=== PATIENT | male | born 1990 | race Caucasian/White ===

== ENCOUNTER 2018-12-10 21:44 | Emergency (ER) | payer MEDICAID ==
[2018-12-10] MEDS ORDERED: 0.9 % SODIUM CHLORIDE 1,000 ML BAG IV ONE (21:56)
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
[2018-12-10 22:16] LABS: BASO % 0.6 % (0-6); EOS % 0.5 % (0-6); GRAN % 70.9 % (47-80); HEMATOCRIT 43.5 % (42.0-52.0); HEMOGLOBIN 15.1 gm/dl (14.0-18.0); LYMPH % 19.2 % (16-45); MEAN CELL VOLUME 87.3 fl (81-97); MEAN CORPUSCULAR HEMOGLOBIN 30.3 pg (27-33); MEAN CORPUSCULAR HGB CONC 34.7 g/dl (32-36); MEAN PLATELET VOLUME 10.5 fl (7.4-10.4); MONO % 8.8 % (0-9); PLATELET COUNT 207 K/uL (130-400); RED BLOOD COUNT 4.98 M/uL (4.40-5.70); RED CELL DISTRIBUTION WIDTH 14.1 % (11.5-14.5); WHITE BLOOD COUNT W/O DIFF 10.3 K/uL (4.2-12.2)
[2018-12-10 22:25] LABS: BLOOD UREA NITROGEN 12 mg/dL (6-20); CREATININE 0.9 mg/dL (0.7-1.2); EST GLOMERULAR FILTRATION RATE > 60 mL/min; TOTAL PROTEIN 7.6 g/dL (6.6-8.7)
[2018-12-10 22:27] LABS: GLUCOSE,RANDOM 205 mg/dL (74-109)
[2018-12-10 22:30] LABS: ALB/GLOB RATIO 1.8 (1.1-1.8); ALBUMIN 4.9 g/dL (4.0-5.0); ALKALINE PHOSPHATASE 70 U/L (55-149); ALT/SGPT 9 U/L (<41); AST/SGOT 10 U/L (10.0-50.0)
[2018-12-10] MEDS ORDERED: POTASSIUM CHLORIDE 20 MEQ TABLET PO ONE (22:30)
--- NOTE | 2018-12-14 08:32 | RADIOLOGY REPORT ---
EXAM: CHEST, TWO VIEWS HISTORY: HEROIN OVERDOSE. TECHNIQUE: Two views of the chest were obtained. FINDINGS: The heart and pulmonary vessels are normal. The lungs are clear. There are no effusions. IMPRESSION: NORMAL CHEST EXAMINATION. JOB NUMBER: [id number] MTDD
== END 2018-12-10 23:58 | disposition left against medical advice (07) ==
LOC: ER 21:44 → EDBD 21:44 → ER 23:58
DX: T40.1X1A Poisoning by heroin, accidental (unintentional), initial encounter (principal); T40.5X1A Poisoning by cocaine, accidental (unintentional), initial encounter; R00.0 Tachycardia, unspecified; F17.200 Nicotine dependence, unspecified, uncomplicated
CPT/HCPCS: 71046; 80053; 85025; 93005; 93010; 99283